=== PATIENT | male | born 1990 | race Caucasian/White ===

== ENCOUNTER → 2020-05-26 18:18 | Outpatient (BNVA) | payer OTHER, SELFPAY | PROVIDERS: Family Provider Nurse Practitioner Family; PCP Nurse Practitioner Family; Visit Provider Emergency Medicine | DX: Z20.828 Contact with and (suspected) exposure to other viral communicable diseases (principal) | CPT/HCPCS: 87635 ==

== ENCOUNTER → 2022-01-12 11:04 | Outpatient (BNVA) | payer OTHER, SELFPAY | PROVIDERS: Family Provider Nurse Practitioner Family; PCP Nurse Practitioner Family; Visit Provider Registered Nurse Neonatal Intensive Care | DX: M79.642 Pain in left hand (principal) | CPT/HCPCS: 73130 ==

== ENCOUNTER → 2022-01-14 14:14 | Outpatient (BNVA) | payer OTHER, SELFPAY | PROVIDERS: Family Provider Nurse Practitioner Family; PCP Nurse Practitioner Family; Referring Provider Registered Nurse Neonatal Intensive Care; Visit Provider Specialist | DX: S62.609A Fracture of unspecified phalanx of unspecified finger, initial encounter for closed fracture (principal); X58.XXXA Exposure to other specified factors, initial encounter | CPT/HCPCS: 73140 ==

== ENCOUNTER 2022-02-05 23:23 | Emergency (ER) | payer OTHER, SELFPAY ==
--- NOTE | 2022-02-05 23:25 | USR_ITS ---
PROCEDURE INFORMATION: Exam: US Scrotum Exam date and time: 02/05/2022 11:45 PM Age: 31 years old Clinical indication: Groin pain; Prior surgery; Surgery date: 6+ months; Surgery type: History of surgical correction of right undescended testicle as an . Patient HX: Right scrotal pain x 3 hours; Additional info: Testicle pain TECHNIQUE: Imaging protocol: Real-time ultrasound of the scrotum and contents with color Doppler and image documentation. COMPARISON: No relevant prior studies available. FINDINGS: Right testicle: Right testis measures 3.5 x 1.7 x 2.6 cm. No mass. No torsion. Normal vascular flow. Left testicle: Left testis measures 3.7 x 2.2 x 3.4 cm. . No mass. No torsion. Normal vascular flow. Epididymides: Normal. Scrotum: Normal. US/US scrotum [id number] IMPRESSION: Normal scrotal ultrasound.
[2022-02-05 23:28] VITALS: BP 141/73; PULSE 85; RESP 20; TEMP 37.1; O2SAT 98; BMI 21.7
--- NOTE | 2022-02-05 23:39 | ED_ITS ---
HPI - General Adult General: Chief complaint: General Medical Stated complaint: Testicals Are swollen Time Seen by Provider: 02/05/22 23:24 Source: patient Mode of arrival: ambulatory Limitations: no limitations History of Present Illness: 31-year-old male states he was laying in bed at 930 states he had a slight pain in his right testicle states the pain was roughly 4-5 out of 10 he states he felt like it was drawn up as well he searched online was concerned about torsion he states that since his pain is completely resolved denies any changes of appearance currently either denies any penile discharge or dysuria. Associated symptoms: Deny chest pain, dyspnea, headache(s), nausea, rash or vomiting Review of Systems Const: Denies: fever(s), chills, body aches or change in appetite Eyes: Denies: blurry vision or eye discomfort ENMT: Denies: throat pain or dental pain Card: Denies: chest pain Resp: Denies: dyspnea GI: Denies: abdominal pain, nausea, vomiting or diarrhea : Reports: testicular pain Musc: Denies: neck pain or back pain Skin/Breast: Denies: rash Neuro: Denies: headache(s) Psych: Denies: depression Musa/Lymph: Denies: easy bruising All/Imm: Denies: urticaria PFSH ED PFSH: Medical History (Updated 02/06/22 @ 00:12 by Nadege Byrd MD) No pertinent past medical history Social History Smoking and tobacco status: never smoked Alcohol intake: never Physical Exam Const: COMMON NORMALS: no acute distress and patient oriented x3 HENMT: COMMON NORMALS: normocephalic, atraumatic and Normal external nose present HEAD & SCALP: normocephalic and atraumatic NOSE: Normal external nose present Eye: COMMON NORMALS: conjunctivae normal CONJUNCTIVA: Yes conjunctivae normal Neck/C-Spine: COMMON NORMALS: supple Chest: COMMONS NORMALS: normal inspection of the chest Resp: COMMON NORMALS: normal respiratory effort Cardio: COMMON NORMALS: regular rate RATE: regular rate GI: INSPECTION: Yes normal to inspection : OTHER: Testicle exam is normal no tenderness no [place] testicle no swelling Extremity: COMMON NORMALS: normal to inspection Neuro: COMMON NORMALS: patient oriented x3 Psych: COMMON NORMALS: mental status grossly normal, Normal thought process present and cooperative THOUGHT PROCESS: Normal thought process present Skin: COMMON NORMALS: no rashes or lesions noted GENERAL SKIN EXAM: no rashes or lesions noted Course Vital Signs: Vital signs: Vital Signs Temperature 98.8 F 02/05/22 23:49 Pulse Rate 85 02/05/22 23:49 Respiratory Rate 20 H 02/05/22 23:49 Blood Pressure 141/73 02/05/22 23:49 Pulse Oximetry 98 02/05/22 23:49 Oxygen Delivery Me thod 02/05/22 23:49 MDM - General Adult Medical Decision Making Patient presents here with testicle pain is resolved he has no signs of torsion his ultrasound is negative he stable for discharge we will get him urology follow-up he is return if worsening he understands agrees to plan. Discharge Plan Discharge Patient Disposition: Home Clinical Impression: Pain in testicle Qualifiers: Laterality: right Qualified Code(s): N50.811 - Right testicular pain Condition: Stable Prescriptions: No Action (DME) stacked splint See Rx Instructions .Route .MEDSUPPLY Qty: 1 0RF Rx Instructions: As directed Discharge Orders: Discharge ED (Routine); Ordered 02/06/22 Ordered By: Nadege Byrd Referrals: Akil Hughes MD [Physician] - 1-3 days Medrano,ROBBIE Moore [Primary Care Provider] - Discharge Diet: Advance as tolerated Discharge Activity: Resume usual activity Patient Instructions: Testicle Pain (ED) Coding Level of Care Code ED It Security Engineer for Chg Fwd Exam Comprehensive
[2022-02-05 23:49] VITALS: BP 141/73; PULSE 85; RESP 20; TEMP 37.1; O2SAT 98
[2022-02-06 00:28] VITALS: BP 137/73; PULSE 80; RESP 16; TEMP 37.1; O2SAT 99
--- NOTE | 2022-02-06 10:38 | DCPLANNER ---
Addendum entered by Cyndy Aleman 02/12/22 07:48: accounting practice manager received the following message from the urology clinic regarding followup appointment: Patient declined appt. Original Note: accounting practice manager had message to schedule a follow up appointment for patient with urology. accounting practice manager sent patients information to the front office staff at urology. Patients information will be printed and reviewed. Clinic will call patient with appointment information.
== END 2022-02-06 00:30 | disposition home or self-care (01) ==
PROVIDERS: Emergency Provider Emergency Medicine; PCP Nurse Practitioner Family
DX: N50.811 Right testicular pain (principal)
CPT/HCPCS: 76870; 99284